=== PATIENT | male | born 1975 | race American Indian/Alaskan Native ===

== ENCOUNTER 2021-06-28 16:05 | Emergency (ER) | payer SELFPAY ==
--- NOTE | 2021-06-28 18:57 | Emergency Department Report ---
Minor Respiratory - HPI Chief Complaint: Headache Stated Complaint: FLU LIKE SX Time Seen by Provider: 06/28/21 18:54 Duration: 3 Days Minor Respiratory: Yes Able to Tolerate Fluids, Yes Sick Contacts, No Rhinorrhea, No Sore Throat, No Ear Pain, No Cough, No Hemoptysis, No Chest Pain, No Shortness of Breath, No Fever Other History: 46-year-old -[place] male presents to the emergency room complaining of flulike symptoms. Patient is accompanied with his girlfriend who has a same complaint. Patient has not been vaccinated for flu or COVID. He complains of night sweats and fever at night. Also complains of intermittent headaches and will have loose bowels. He complains of intermittent abdominal pain but no pain today. ED Review of Systems ROS: Stated complaint: FLU LIKE SX Other details as noted in HPI Comment: All other systems reviewed and negative ED Past Medical Hx - Past Medical History Previous Medical History?: No Minor Respiratory Exam - Exam General: Vital signs noted. No distress. Alert and acting appropriately. HEENT: Yes Moist Mucous Membranes, No Pharyngeal Erythema, No Pharyngeal Exudates, No Rhinorrhea, No Conjuctival Injection, No Frontal Tenderness, No Maxillary Tenderness Ear: Neither TM Bulge, Neither TM Erythema, Neither EAC Pain, Neither EAC Discharge Neck: Yes Supple, No Adenopathy Lungs: Yes Good Air Exchange, No Wheezes, No Ronchi, No Stridor, No Cough, No Labored Respirations, No Retractions, No Use of Accessory Muscles, No Other Abnormal Lung Sounds Heart: Yes Regular, No Murmur Abdomen: Yes Normal Bowel Sounds, No Tenderness, No Peritoneal Signs Skin: No Rash, No Edema Neurologic: Alert and oriented, no deficits. Musculoskeletal: Unremarkable. ED Course Vital Signs 06/28/21 18:22 Temperature 99.3 F Pulse Rate 70 Respiratory 18 Rate Blood Pressure 151/73 O2 Sat by Pulse 97 Oximetry ED Medical Decision Making - Medical Decision Making 46-year-old -[place] male presents to the emergency room complaining of flulike symptoms. Patient is accompanied with his girlfriend who has a same complaint. Patient has not been vaccinated for flu or COVID. He complains of night sweats and fever at night. Also complains of intermittent headaches and will have loose bowels. He complains of intermittent abdominal pain but no pain today. Rapid flu's sent to lab. Negative flu. Diagnosed with allergic rhinitis increase your fluids advance your diet as tolerated [id number] Zyrtec's or Claritin. Critical care attestation.: If time is entered above; I have spent that time in minutes in the direct care of this critically ill patient, excluding procedure time. ED Disposition Clinical Impression: Allergic rhinitis Disposition: 01 HOME / SELF CARE / HOMELESS Is pt being admited?: No Does the pt Need Aspirin: No Condition: Stable Instructions: Allergic Rhinitis, Adult, [id number] Additional Instructions: Negative flu test. Try [id number] Zyrtec's increase your fluids advance your diet as tolerated. Recommend to follow-up with a primary care provider. Referrals: KAYKAY GAXIOLA MD [Staff Physician] - 3-5 Days Forms: Work/School Release Form(ED) Time of Disposition: 20:04
[2021-06-28 20:51] VITALS: BP 141/66
== END 2021-06-28 20:51 | disposition home or self-care (01) ==
LOC: ED 16:05
DX: J30.9 Allergic rhinitis, unspecified (principal)
CPT/HCPCS: 87400; 99283